=== PATIENT | male | born 1975 | race Caucasian/White ===

== ENCOUNTER 2020-01-13 09:20 | Emergency (ER) | payer OTHER, SELFPAY ==
--- NOTE | 2020-01-13 09:27 | ED.GENADULT ---
HPI - General Adult General Chief complaint: Extremity Injury, Upper Stated complaint: right thumb sore Time Seen by Provider: 01/13/20 09:27 Source: patient Mode of arrival: ambulatory Limitations: no limitations History of Present Illness HPI narrative: 44-year-old male presents to the [facility] with complaints of right thumb pain for the past 2 weeks. Patient states he has been soaking his thumb and some Epson salt soaks. He noticed a little bit of discharge coming from the thumb. Patient states he is also been cleaning with peroxide. Denies any fevers, body aches or chills. Related Data Allergies Allergy/AdvReac Type Severity Reaction Status Date / Time No Known Allergies Allergy Unverified 10/06/18 18:50 Review of Systems Review of Systems: Narrative: CONSTITUTIONAL: Denies fever, chills, or sweats. EYES: Denies visual changes, redness, or discharge. ENT: Denies rhinorrhea, congestion, sore throat, or otalgia. CARDIOVASCULAR: Denies chest pain, palpitations, or edema. RESPIRATORY: Denies cough or dyspnea. GASTROINTESTINAL: Denies abdominal pain, nausea, vomiting, or diarrhea. GENITOURINARY: Denies dysuria or hematuria. SKIN: Denies rash or itching. Positive wound to right thumb x2 weeks MUSCULOSKELETAL: Denies back pain, joint pain, or myalgia. NEUROLOGIC: Denies headache, numbness, or weakness. PSYCHIATRIC: Denies anxiety or depression. PMFSH Comments At the time of my signature I agree with nursing past medical history, surgical, social, and family history. There is no relevant family history pertinent to the presenting complaint. Exam Narrative: Exam Narrative: GENERAL: Well-appearing, well-nourished, and in no acute distress. HEAD: Normocephalic, atraumatic. EYES: PERRLA and EOMI. ENT: Nares clear, no rhinorrhea or epistaxis. Mucous membranes moist. NECK: Supple. No lymphadenopathy CHEST: Clear to auscultation. No respiratory distress. HEART: Regular rate and rhythm. No murmur heard. Normal peripheral pulses. ABDOMEN: Soft, nontender, nondistended, normal active bowel sounds. EXTREMITIES: Normal range of motion. No edema. SKIN: Warm, dry, no rash. Patient has a healing paronychia him to the radial side of the right thumb. There is no hardening, swelling to the area but it does appear that there is a little bit of scabbing and discharge around the nailbed. Slight tenderness on palpation. No warmth. NEURO: No focal deficits. Alert and oriented x3. Course Vital Signs Vital signs: Vital Signs Temperature 36.4 C 01/13/20 09:28 Pulse Rate 72 01/13/20 09:28 Respiratory Rate 16 01/13/20 09:28 Blood Pressure 130/85 01/13/20 09:28 Pulse Oximetry 100 01/13/20 09:28 Temperature 36.4 C 01/13/20 09:28 Pulse Rate 72 01/13/20 09:28 Respiratory Rate 16 01/13/20 09:28 Blood Pressure 130/85 01/13/20 09:28 Pulse Oximetry 100 01/13/20 09:28 Vital signs reviewed. The patient has been informed that they may have pre-hypertension or Hypertension based on a BP reading in the department. I recommend that the patient call the primary care provider listed on their discharge instructions or a physician of their choice this week to arrange follow up for further evaluation of possible pre-hypertension or Hypertension Medical Decision Making Differential Diagnosis Differential Diagnosis: Differential diagnosis: Abscess, cellulitis, hidradenitis, laceration, puncture wound. Discussed with patient we will discharge him home with an antibiotic ointment that he should put on the nail. Discussed with him he should be doing the warm Epson salts about 2-3 times a day, pat it dry and put ointment on afterwards and cover with a Band-Aid. Discussed with him that it does appear that it is healing and should take a little bit longer to heal but he is doing a good job keeping it clean. Patient verbalized understanding denies any other questions or concerns at this time. Vital Signs Vital Signs: Vital Sign
[2020-01-13 09:28] VITALS: BP 130/85; PULSE 72; RESP 16; TEMP 36.4; O2SAT 100
== END 2020-01-13 10:02 | disposition home or self-care (01) ==
PROVIDERS: Emergency Provider Nurse Practitioner Family; PCP Family Medicine
DX: L03.011 Cellulitis of right finger (principal)
CPT/HCPCS: 99213; G0463